=== PATIENT | female | born 1950 | race Caucasian/White ===

== ENCOUNTER 2018-10-30 06:41 | Inpatient (IN) | payer MEDICARE ==
[2018-10-29 09:42] VITALS: BMI 37.5
[2018-10-30 07:45] LABS: #Eosinphils 0.1 thou/uL (0.0-0.7); #Lymphocytes 3.1 thou/uL (1.20-3.40); #Monocytes 0.5 thou/uL (0.11-0.59); #Neutrophils 3.1 thou/uL (1.40-6.50); %Basophils 0.6 % (0.0-1.0); %Lymphocytes 44.9 % (21.0-51.0); %Monocytes 7.6 % (0.0-10.0); %Neutrophils 45.9 % (42.0-75.0); Hemoglobin 11.7 g/dL (12.0-16.0); Mean Corpuscular HGB CONC 33.2 g/dL (32.0-36.0); Mean Corpuscular Hemoglobin 29.8 pg (27.0-31.0); Mean Corpuscular Volume 89.6 fL (78.0-98.0); Mean Platelet Volume 7.1 fL (7.4-10.4); Platelet Count 237 thou/uL (130-400); RBC Distribution Width 12.8 % (11.5-14.5); Red Blood Cell (RBC) Count 3.92 mill/uL (4.20-5.40); White Blood Cell (WBC) Count 6.8 thou/uL (4.8-10.8)
[2018-10-30 08:04] LABS: Anion Gap 12 mmol/L (10-20); BUN (Urea Nitrogen) 16 mg/dL (9.8-20.1); Calc. Creatinine Clearance 96 mL/min (70-130); Calcium 9.3 mg/dL (7.8-10.44); Carbon Dioxide 30 mmol/L (23-31); Chloride 100 mmol/L (98-107); Estimated GFR-MDRD 65; Glucose 106 mg/dL (80-115); Potassium 4.2 mmol/L (3.5-5.1); Sodium 138 mmol/L (136-145)
[2018-10-30] MEDS ORDERED: Sodium Chloride 0.9% 10 ML ONE (09:23)
[2018-10-30] MEDS ORDERED: Fentanyl 100 MCG/2 ML VIAL ONE ×3 (09:35→11:52)
[2018-10-30] MEDS ORDERED: Glycopyrrolate 0.2 MG/ML 5 ML SYRINGE ONE (10:12)
[2018-10-30] MEDS ORDERED: Ketorolac Tromethamine 30 MG/ML VIAL ONE (10:12)
[2018-10-30] MEDS ORDERED: Rocuronium Bromide 10 MG/ML (10ML VIAL) ONE (10:12)
[2018-10-30] MEDS ORDERED: Dexamethasone 20 MG/5 ML VIAL ONE (10:12)
[2018-10-30] MEDS ORDERED: Lidocaine 1% PF 5 ML VIAL ONE (10:12)
[2018-10-30] MEDS ORDERED: PROPOFOL 200 MG/20 ML VIAL ONE (10:12)
[2018-10-30] MEDS ORDERED: Ondansetron PF 4 MG/2 ML Vial ONE (10:12)
[2018-10-30] MEDS ORDERED: Meperidine HCl/PF 25 MG/ML VIAL SLOW IVP PRN (11:39)
[2018-10-30] MEDS ORDERED: Promethazine HCl 25 MG/ML VIAL IM/IV PRN (11:39)
[2018-10-30] MEDS ORDERED: Ketorolac Tromethamine 30 MG/ML VIAL IVP PRN (11:39)
[2018-10-30] MEDS ORDERED: Ondansetron HCl/PF 4 MG/2 ML Vial IVP PRN (11:39)
[2018-10-30] MEDS ORDERED: Non-Formulary Medication 1 EACH PO PRN (11:39)
[2018-10-30] MEDS ORDERED: Morphine 4 MG/ML VIAL SLOW IVP PRN ×2 (11:39→12:14)
[2018-10-30] MEDS ORDERED: HYDROmorphone 2 MG/ML VIAL ONE (12:13)
[2018-10-30] MEDS ORDERED: HYDROcodone/Acetaminophen 10/325 mg Tablet PO PRN (12:14)
[2018-10-30] MEDS ORDERED: Promethazine 25 MG TAB PO PRN (12:14)
[2018-10-30] MEDS ORDERED: tiZANidine HCl 4 MG TAB PO PRN (12:14)
[2018-10-30] MEDS ORDERED: Bisacodyl 10 MG SUPP PR PRN (12:14)
[2018-10-30] MEDS ORDERED: Milk Of Magnesia 30 ML UDCUP PO PRN (12:14)
[2018-10-30] MEDS ORDERED: diphenhydrAMINE 50 MG/ML VIAL IVP PRN (12:14)
[2018-10-30] MEDS ORDERED: diphenhydrAMINE 25 MG CAP PO PRN (12:14)
[2018-10-30] MEDS ORDERED: traMADol HCl 50 MG TAB PO PRN ×2 (12:14)
[2018-10-30] MEDS ORDERED: Mag-Al 1200 mg/1200 mg/30 ML UDCUP PO PRN (12:14)
[2018-10-30] MEDS ORDERED: Promethazine HCl 25 MG/ML VIAL IM PRN (12:14)
[2018-10-30] MEDS ORDERED: Promethazine HCl 12.5 MG SUPP PR PRN (12:14)
[2018-10-30] MEDS ORDERED: Ondansetron PF 4 MG/2 ML Vial IM PRN (12:14)
[2018-10-30] MEDS ORDERED: Morphine 2 MG/ML SYRINGE SLOW IVP PRN (12:15)
--- NOTE | 2018-10-30 12:37 | OP ---
DATE OF PROCEDURE: 10/30/2018 MODEL BUILDER: Nesha Parkinson PA-C PROCEDURES PERFORMED: L4-L5 laminectomy, posterolateral arthrodesis, pedicle screw instrumentation, demineralized bone matrix, local morselized autograft, L4-L5 pedicle screw instrumentation. DESCRIPTION OF PROCEDURE: The patient was brought to the operating room and intubated. She was rolled in a prone position on gel-filled chest rolls. An incision was made exposing L4 and L5 and the level was confirmed by x-ray. We performed moderate bilateral medial facetectomies for the purpose of decompressions and then we placed pedicle screws at L4 and L5 bilaterally using lateral fluoroscopic guidance and the position was confirmed with AP and lateral x-ray. A bhargav was secured between the screws, connected by nuts, which were final tightened. The wound was then extensively irrigated and maximum hemostasis was secured. A combination of demineralized bone matrix and local morselized autograft was laid over the lamina and posterolateral surfaces for the purpose of arthrodesis. Vancomycin powder was applied and the wound was then closed in anatomic layers. Job ID: [id number]
[2018-10-30] MEDS ORDERED: Promethazine HCl 25 MG/ML VIAL ONE (12:40)
[2018-10-30] MEDS: Sodium Chloride 0.9% 1,000 ML IV SCH (13:47)
[2018-10-30] MEDS ORDERED: ALPRAZolam 0.5 MG TAB PO PRN (14:45)
[2018-10-30] MEDS ORDERED: Eucerin (Mineral Oil/Petrolatum,White) 30 gm Jar TOP PRN (15:14)
[2018-10-30] MEDS ORDERED: Diabetic Tussin 200 MG/10 ML UDCUP PO PRN (15:14)
[2018-10-30] MEDS ORDERED: Loperamide HCl 2 MG CAP PO PRN (15:14)
[2018-10-30] MEDS ORDERED: Zolpidem Tartrate 5 MG TAB PO PRN (15:14)
[2018-10-30] MEDS ORDERED: Cepastat Lozenges 1 LOZ PO PRN (15:14)
[2018-10-30] MEDS ORDERED: hydrALAZINE 20 MG/ML VIAL SLOW IVP PRN (15:14)
[2018-10-30] MEDS ORDERED: Artificial Tears 18 DROP/0.9 ML EA EYE PRN (15:14)
[2018-10-30] MEDS ORDERED: Senokot S 8.6-50 MG TAB PO PRN (15:14)
--- NOTE | 2018-10-30 15:14 | PDOC.PN ---
- Subjective Encounter Start Date: 10/30/18 Encounter Start Time: 15:13 -: old records requested/rev Patient seen and examined. No new complaints. No overnight events consulted for medical management - Objective MAR Reviewed: Yes Vital Signs & Weight: Vital Signs (12 hours) Temp Pulse Resp BP Pulse Ox 10/30/18 13:40 97.6 F 90 16 131/81 93 L Weight Weight 220 lb Result Diagrams: 10/30/18 07:37 10/30/18 07:37 Phys Exam - Physical Examination Constitutional: NAD HEENT: PERRLA, moist MMs, sclera anicteric Neck: no JVD, supple Respiratory: no wheezing, no rales, no rhonchi Cardiovascular: RRR, no significant murmur, no rub Gastrointestinal: soft, non-tender, no distention, positive bowel sounds Musculoskeletal: no edema, pulses present Neurological: non-focal, normal sensation, moves all 4 limbs Lymphatic: no nodes Psychiatric: normal affect, A&O x 3 Skin: no rash, normal turgor Dx/Plan (1) S/P lumbar laminectomy Code(s): Z98.890 - OTHER SPECIFIED POSTPROCEDURAL STATES Status: Acute (2) Anemia, normocytic normochromic Code(s): D64.9 - ANEMIA, UNSPECIFIED Status: Chronic (3) Anxiety and depression Code(s): F41.9 - ANXIETY DISORDER, UNSPECIFIED; F32.9 - MAJOR DEPRESSIVE DISORDER, SINGLE EPISODE, UNSPECIFIED Status: Chronic (4) Chronic low back pain Code(s): M54.5 - LOW BACK PAIN; G89.29 - OTHER CHRONIC PAIN Status: Chronic (5) Dyslipidemia Code(s): E78.5 - HYPERLIPIDEMIA, UNSPECIFIED Status: Chronic (6) GERD (gastroesophageal reflux disease) Code(s): K21.9 - GASTRO-ESOPHAGEAL REFLUX DISEASE WITHOUT ESOPHAGITIS Status: Chronic (7) Hypertension Code(s): I10 - ESSENTIAL (PRIMARY) HYPERTENSION Status: Chronic (8) Obesity (BMI 30-39.9) Code(s): E66.9 - OBESITY, UNSPECIFIED Status: Chronic - Plan cont current plan of care, PT/OT * home medication reconciled * medication reviewed as below * symptomatic treatment * pain controlled * code status full code * medically stable. Review of Systems - Review of Systems ENT: negative: Ear Pain, Ear Discharge, Nose Pain, Nose Discharge, Nose Congestion, Mouth Pain, Mouth Swelling, Throat Pain, Throat Swelling, Other Respiratory: negative: Cough, Dry, Shortness of Breath, Hemoptysis, SOB with Excertion, Pleuritic Pain, Sputum, Wheezing Cardiovascular: negative: chest pain, palpitations, orthopnea, paroxysmal nocturnal dyspnea, edema, light headedness, other Gastrointestinal: negative: Nausea, Vomiting, Abdominal Pain, Diarrhea, Constipation, Melena, Hematochezia, Other Genitourinary: negative: Dysuria, Frequency, Incontinence, Hematuria, Retention , Other Musculoskeletal: negative: Neck Pain, Shoulder Pain, Arm Pain, Back Pain, Hand Pain, Leg Pain, Foot Pain, Other Skin: negative: Rash, Lesions, [place], Bruising, Other - Medications/Allergies Allergies/Adverse Reactions: Allergies Allergy/AdvReac Type Severity Reaction Status Date / Time No Known Allergies Allergy Verified 10/29/18 09:42 Medications: Current Medications Hydrocodone Bitart/Acetaminophen ([place] 10/325) 1 tab PO Q4H PRN PRN Reason: PAIN (1-3) Hydrocodone Bitart/Acetaminophen ([place] 10/325) 2 tab PO Q4H PRN PRN Reason: PAIN (4-6) Al Hydroxide/Mg Hydroxide (Maalox) 30 ml PO Q4H PRN PRN Reason: Heartburn or Indigestion Alprazolam (Xanax) 0.5 mg PO DAILYPRN PRN PRN Reason: Anxiety Atorvastatin Calcium (Lipitor) 20 mg PO HS MAHESH Bisacodyl (Dulcolax) 10 mg LA Q12H PRN PRN Reason: Constipation Cyclobenzaprine HCl (Flexeril) 10 mg PO HS MAHESH Diphenhydramine HCl (Benadryl) 25 mg PO Q6H PRN PRN Reason: Itching Diphenhydramine HCl (Benadryl) 25 mg IVP Q6H PRN PRN Reason: Itching Estradiol (Estrace) 1 mg PO DAILY [facility] Fentanyl (Pacu-Sublimaze) 50 mcg SLOW IVP Q10MIN PRN PRN Reason: Moderate to Severe Pain/PACU Stop: 10/30/18 23:30 Gabapentin (Neurontin) 600 mg PO BID MAHESH Hydrochlorothiazide (Hydrochlorothiazide) 25 mg PO DAILY [facility] Sodium Chloride (Normal Saline 0.9%) 1,000 mls @ 75 mls/hr IV .[id number] [facility] Last Admin: 10/30/18 13:47 Dose: 1,000 mls Cefazolin Sodium/Dextrose 2 gm (/ Device) 50 mls @ 100 mls/hr IVPB Q8H [facility] Stop: 10/31/18 00:29 Irbesartan (Avapro) 150 mg PO DAILY [facility] Ketorolac Tromethamine (Pacu-Toradol) 15 mg IVP ONE PRN PRN Reason: Pain if not already given/OR Stop: 10/30/18 23:30 Loratadine (Claritin) 10 mg PO DAILY [facility] Magnesium Hydroxide (Milk Of Magnesium) 30 ml PO Q12H PRN PRN Reason: Constipation Meloxicam (Mobic) 15 mg PO DAILY [facility] Meperidine HCl (Demerol) 12.5 mg SLOW IVP ONE PRN PRN Reason: SHIVERING IN PACU Stop: 10/30/18 23:30 Metoprolol Tartrate (Lopressor) 50 mg PO BID [facility] Morphine Sulfate (Morphine) 4 mg SLOW IVP ONE PRN PRN Reason: Moderate to Severe Pain (6-10) Stop: 10/30/18 23:30 Morphine Sulfate (Morphine) 2 mg SLOW IVP Q1H PRN PRN Reason: MODERATE BREAKTHROUGH PAIN Morphine Sulfate (Morphine) 4 mg SLOW IVP Q1H PRN PRN Reason: SEVERE BREAKTHROUGH PAIN Non-Formulary Medication () 0 each PO PRN PRN PRN Reason: FOR RR<12 OR O2 SAT<92%ON RA Stop: 10/30/18 23:30 Ondansetron HCl (Pacu-Zofran) 4 mg IVP ONE PRN PRN Reason: Nausea/Vomiting in PACU Stop: 10/30/18 23:30 Ondansetron HCl (Zofran) 4 mg IM Q24H PRN PRN Reason: Nausea/Vomiting Pantoprazole Sodium (Protonix) 40 mg PO DAILY [facility] Integra Plus 0 each PO DAILY [facility] Methylcellulose [ Fiber Laxative 500 Mg] 0 each PO HS [facility] Polyethylene Glycol (Miralax) 17 gm PO HS [facility] Potassium Chloride (Klor-Con 10) 10 meq PO DAILY [facility] Promethazine HCl (Pacu-Phenergan) 6.25 mg IM/IV ONE PRN PRN Reason: Nausea in PACU Stop: 10/30/18 23:30 Promethazine HCl (Phenergan) 12.5 mg IM Q4H PRN PRN Reason: Nausea/Vomiting Promethazine HCl (Phenergan) 12.5 mg PO Q4H PRN PRN Reason: Nausea/Vomiting Promethazine HCl (Phenergan Suppository) 12.5 mg LA Q4H PRN PRN Reason: Nausea/Vomiting Sodium Chloride (Flush - Normal Saline) 10 ml IVF Q12HR MAHESH Sodium Chloride (Flush - Normal Saline) 10 ml IVF PRN PRN PRN Reason: Saline Flush Tizanidine HCl (Zanaflex) 4 mg PO Q6H PRN PRN Reason: MUSCLE SPASM Tramadol HCl (Ultram) 50 mg PO Q6H PRN PRN Reason: PAIN (1-3) Tramadol HCl (Ultram) 100 mg PO Q6H PRN PRN Reason: PAIN (4-6)
[2018-10-30] MEDS: CEFAZOLIN 2 GM in Premix Bag 1 BAG IVPB SCH ×2 (16:45→23:14)
[2018-10-30] MEDS: HYDROcodone/Acetaminophen 10/325 mg Tablet PO PRN ×2 (16:47→21:29)
[2018-10-30] MEDS ORDERED: Cyclobenzaprine 10 MG TAB PO SCH (21:00)
[2018-10-30] MEDS ORDERED: Atorvastatin Calcium 20 MG TAB PO SCH (21:00)
[2018-10-30] MEDS ORDERED: Polyethylene Glycol 3350 17 GM Packet PO SCH (21:00)
[2018-10-30] MEDS ORDERED: Citrucel 500 MG TAB PO SCH (21:00)
[2018-10-30] MEDS: Gabapentin 300 MG CAP PO SCH (21:29)
[2018-10-30] MEDS: Metoprolol Tartrate 50 MG TAB PO SCH (21:29)
[2018-10-31] MEDS: Sodium Chloride 0.9% 1,000 ML IV SCH ×2 (00:35→14:54)
--- NOTE | 2018-10-31 08:56 | PRG ---
DATE OF SERVICE: 10/31/2018 SUBJECTIVE: The patient is a 68-year-old female, status post L4-L5 decompression and fusion. Following the surgery, she was transitioned to the Med/Surg floor, where her pain has been well-controlled with p.o. medications, she has been tolerating a regular diet, and she has been voiding appropriately. The patient reports she does feel weak when she attempts to stand up and walk. She is able to get up to the bedside commode, but she has not done much walking other than that. She has also had some small amount of incisional drainage, which required dressing changes overnight. The patient is awake, alert, comfortable. Her dressing was recently changed and no active drainage is appreciated. There is a small amount of bloody drainage on the pad. She has free active range of all extremities and good motor strength in the bed. PLAN: We will plan to get the patient a rolling walker and continue to mobilize with the assistance of Physical Therapy. The patient would like to go home today; however, considering her lack of mobilization at this point, we will reassess later this afternoon after physical therapy and if she gets a walker. I will call to check on the patient later today and then further formulate a plan. Job ID: [id number]
[2018-10-31] MEDS ORDERED: Loratadine 10 MG TAB PO SCH (09:00)
[2018-10-31] MEDS ORDERED: Potassium Chloride 10 MEQ TAB PO SCH (09:00)
[2018-10-31] MEDS ORDERED: INTEGRA PLUS PO SCH (09:00)
[2018-10-31] MEDS ORDERED: Estradiol 1 MG TAB PO SCH (09:00)
[2018-10-31] MEDS ORDERED: Hydrochlorothiazide 25 MG TAB PO SCH (09:00)
[2018-10-31] MEDS ORDERED: Meloxicam 15 MG TAB PO SCH (09:00)
[2018-10-31] MEDS: Metoprolol Tartrate 50 MG TAB PO SCH (09:22)
[2018-10-31] MEDS: Gabapentin 300 MG CAP PO SCH (09:22)
[2018-10-31] MEDS: Cephalexin 250 MG CAP PO SCH ×2 (09:22→15:08)
[2018-10-31] MEDS: HYDROcodone/Acetaminophen 10/325 mg Tablet PO PRN ×2 (09:23→16:37)
--- NOTE | 2018-10-31 10:21 | PDOC.PN ---
- Subjective Encounter Start Date: 10/31/18 Encounter Start Time: 08:00 Patient seen and examined. No new complaints. No overnight events - Objective Resuscitation Status - Order Detail: 10/30/18 15:15 Resuscitation Status Routine Resuscitation Status: FULL: Full Resuscitation MAR Reviewed: Yes Vital Signs & Weight: Vital Signs (12 hours) Temp Pulse Resp BP Pulse Ox 10/31/18 09:00 97.9 F 84 20 121/63 100 10/31/18 08:45 97.9 F 84 20 121/63 100 10/31/18 04:09 98.0 F 81 20 95/61 93 L 10/31/18 00:17 97.9 F 108 H 20 136/78 95 Weight Weight 220 lb I&O: 10/30/18 10/31/18 11/01/18 06:59 06:59 06:59 Intake Total 1150 Balance 1150 Result Diagrams: 10/30/18 07:37 10/30/18 07:37 Phys Exam - Physical Examination Constitutional: NAD HEENT: PERRLA, moist MMs, sclera anicteric Neck: no JVD, supple Respiratory: no wheezing, no rales, no rhonchi Cardiovascular: RRR, no significant murmur, no rub Gastrointestinal: soft, non-tender, no distention, positive bowel sounds Musculoskeletal: no edema, pulses present Neurological: non-focal, normal sensation, moves all 4 limbs Lymphatic: no nodes Psychiatric: normal affect, A&O x 3 Skin: no rash, normal turgor Dx/Plan (1) S/P lumbar laminectomy Code(s): Z98.890 - OTHER SPECIFIED POSTPROCEDURAL STATES Status: Acute (2) Anemia, normocytic normochromic Code(s): D64.9 - ANEMIA, UNSPECIFIED Status: Chronic (3) Anxiety and depression Code(s): F41.9 - ANXIETY DISORDER, UNSPECIFIED; F32.9 - MAJOR DEPRESSIVE DISORDER, SINGLE EPISODE, UNSPECIFIED Status: Chronic (4) Chronic low back pain Code(s): M54.5 - LOW BACK PAIN; G89.29 - OTHER CHRONIC PAIN Status: Chronic (5) Dyslipidemia Code(s): E78.5 - HYPERLIPIDEMIA, UNSPECIFIED Status: Chronic (6) GERD (gastroesophageal reflux disease) Code(s): K21.9 - GASTRO-ESOPHAGEAL REFLUX DISEASE WITHOUT ESOPHAGITIS Status: Chronic (7) Hypertension Code(s): I10 - ESSENTIAL (PRIMARY) HYPERTENSION Status: Chronic (8) Obesity (BMI 30-39.9) Code(s): E66.9 - OBESITY, UNSPECIFIED Status: Chronic - Plan cont current plan of care, 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 Review of Systems - Review of Systems ENT: negative: Ear Pain, Ear Discharge, Nose Pain, Nose Discharge, Nose Congestion, Mouth Pain, Mouth Swelling, Throat Pain, Throat Swelling, Other Respiratory: negative: Cough, Dry, Shortness of Breath, Hemoptysis, SOB with Excertion, Pleuritic Pain, Sputum, Wheezing Cardiovascular: negative: chest pain, palpitations, orthopnea, paroxysmal nocturnal dyspnea, edema, light headedness, other Gastrointestinal: negative: Nausea, Vomiting, Abdominal Pain, Diarrhea, Constipation, Melena, Hematochezia, Other Genitourinary: negative: Dysuria, Frequency, Incontinence, Hematuria, Retention , Other Musculoskeletal: negative: Neck Pain, Shoulder Pain, Arm Pain, Back Pain, Hand Pain, Leg Pain, Foot Pain, Other - Medications/Allergies Allergies/Adverse Reactions: Allergies Allergy/AdvReac Type Severity Reaction Status Date / Time No Known Allergies Allergy Verified 10/29/18 09:42 Medications: Current Medications Hydrocodone Bitart/Acetaminophen ([place] 10/325) 1 tab PO Q4H PRN PRN Reason: PAIN (1-3) Hydrocodone Bitart/Acetaminophen ([place] 10/325) 2 tab PO Q4H PRN PRN Reason: PAIN (4-6) Last Admin: 10/31/18 09:23 Dose: 2 tab Al Hydroxide/Mg Hydroxide (Maalox) 30 ml PO Q4H PRN PRN Reason: Heartburn or Indigestion Alprazolam (Xanax) 0.5 mg PO DAILYPRN PRN PRN Reason: Anxiety Last Admin: 10/30/18 23:13 Dose: 0.5 mg Artificial Tears (Tears Naturale) 2 drop EA EYE PRN PRN PRN Reason: Dry Eyes Atorvastatin Calcium (Lipitor) 20 mg PO HS MAHESH Last Admin: 10/30/18 21:29 Dose: 20 mg Bisacodyl (Dulcolax) 10 mg ND Q12H PRN PRN Reason: Constipation Cephalexin (Keflex) 500 mg PO QID [facility] Last Admin: 10/31/18 09:22 Dose: 500 mg Cyclobenzaprine HCl (Flexeril) 10 mg PO HS [facility] Last Admin: 10/30/18 21:29 Dose: 10 mg Diphenhydramine HCl (Benadryl) 25 mg PO Q6H PRN PRN Reason: Itching Diphenhydramine HCl (Benadryl) 25 mg IVP Q6H PRN PRN Reason: Itching Estradiol (Estrace) 1 mg PO DAILY [facility] Last Admin: 10/31/18 09:22 Dose: 1 mg Gabapentin (Neurontin) 600 mg PO BID [facility] Last Admin: 10/31/18 09:22 Dose: 600 mg Guaifenesin (Robitussin Sf) 200 mg PO Q4H PRN PRN Reason: Cough Hydralazine HCl (Apresoline) 10 mg SLOW IVP Q4H PRN PRN Reason: SBP > 180 and HR < 70 Hydrochlorothiazide (Hydrochlorothiazide) 25 mg PO DAILY [facility] Last Admin: 10/31/18 09:21 Dose: 25 mg Sodium Chloride (Normal Saline 0.9%) 1,000 mls @ 75 mls/hr IV .[id number] [facility] Last Admin: 10/31/18 00:35 Dose: Not Given Irbesartan (Avapro) 150 mg PO DAILY [facility] Last Admin: 10/31/18 09:24 Dose: 150 mg Loperamide HCl (Imodium) 2 mg PO PRN PRN PRN Reason: Diarrhea/Loose Stools Loratadine (Claritin) 10 mg PO DAILY [facility] Last Admin: 10/31/18 09:22 Dose: 10 mg Magnesium Hydroxide (Milk Of Magnesium) 30 ml PO Q12H PRN PRN Reason: Constipation Meloxicam (Mobic) 15 mg PO DAILY [facility] Last Admin: 10/31/18 09:21 Dose: 15 mg Methylcellulose (Citrucel) 500 mg PO HS [facility] Last Admin: 10/30/18 21:29 Dose: Not Given Metoprolol Tartrate (Lopressor) 50 mg PO BID [facility] Last Admin: 10/31/18 09:22 Dose: 50 mg Mineral Oil/White Petrolatum (Eucerin Cream) 0 gm TOP BIDPRN PRN PRN Reason: Dry Skin Morphine Sulfate (Morphine) 2 mg SLOW IVP Q1H PRN PRN Reason: MODERATE BREAKTHROUGH PAIN Morphine Sulfate (Morphine) 4 mg SLOW IVP Q1H PRN PRN Reason: SEVERE BREAKTHROUGH PAIN Ondansetron HCl (Zofran) 4 mg IM Q24H PRN PRN Reason: Nausea/Vomiting Pantoprazole Sodium (Protonix) 40 mg PO DAILY [facility] Last Admin: 10/31/18 09:22 Dose: 40 mg Integra Plus 0 each PO DAILY [facility] Polyethylene Glycol (Miralax) 17 gm PO HS [facility] Last Admin: 10/30/18 21:29 Dose: Not Given Potassium Chloride (Klor-Con 10) 10 meq PO DAILY [facility] Last Admin: 10/31/18 09:22 Dose: 10 meq Promethazine HCl (Phenergan) 12.5 mg IM Q4H PRN PRN Reason: Nausea/Vomiting Promethazine HCl (Phenergan) 12.5 mg PO Q4H PRN PRN Reason: Nausea/Vomiting Promethazine HCl (Phenergan Suppository) 12.5 mg ND Q4H PRN PRN Reason: Nausea/Vomiting Senna/Docusate Sodium (Senokot S) 2 tab PO BID PRN PRN Reason: Constipation Sodium Chloride (Flush - Normal Saline) 10 ml IVF Q12HR [facility] Last Admin: 10/31/18 09:29 Dose: 10 ml Sodium Chloride (Flush - Normal Saline) 10 ml IVF PRN PRN PRN Reason: Saline Flush Throat Lozenges (Cepastat Lozenges) 1 irvin PO Q2H PRN PRN Reason: Sore Throat Tizanidine HCl (Zanaflex) 4 mg PO Q6H PRN PRN Reason: MUSCLE SPASM Last Admin: 10/30/18 23:13 Dose: 4 mg Tramadol HCl (Ultram) 50 mg PO Q6H PRN PRN Reason: PAIN (1-3) Tramadol HCl (Ultram) 100 mg PO Q6H PRN PRN Reason: PAIN (4-6) Zolpidem Tartrate (Ambien) 5 mg PO HSPRN PRN PRN Reason: Insomnia
[2018-10-31 15:42] VITALS: BP 114/66; TEMP 97.7
--- NOTE | 2018-11-01 10:37 | DIS ---
DATE OF ADMISSION: 10/30/2018 DATE OF DISCHARGE: 10/31/2018 PRIMARY CARE PHYSICIAN: [facility] Call Admission. DISCHARGE DISPOSITION: Rehab. PRIMARY DISCHARGE DIAGNOSIS: Status post lumbar laminectomy. SECONDARY DISCHARGE DIAGNOSES: 1. Anemia, normocytic normochromic. 2. Anxiety and depression. 3. Chronic low back pain. 4. Hypertension. 5. Gastroesophageal reflux disease. 6. Dyslipidemia. 7. Obesity. PRIMARY PROCEDURE/OPERATION: Lumbar laminectomy. RADIOLOGICAL INVESTIGATION: None. SIGNIFICANT LABORATORY DATA: Hemoglobin 11.7. Creatinine 0.87. DISCHARGE MEDICATIONS: 1. Xanax 0.5 mg p.o. daily. 2. Lipitor 20 mg p.o. at bedtime. 3. Cetirizine 10 mg daily. 4. Flexeril 10 mg at bedtime. 5. Estradiol 1 mg daily. 6. Gabapentin 600 mg b.i.d. 7. Hydrochlorothiazide 25 mg p.o. daily. 8. [place] 1 tablet b.i.d. p.r.n. 9. Avapro 150 mg p.o. daily. 10. Multivitamin 1 tablet p.o. daily. 11. Mobic 15 mg p.o. daily. 12. Laxative 500 mg p.o. at bedtime. 13. Lopressor 50 mg b.i.d. 14. Omeprazole 20 mg daily. 15. MiraLAX 17 g p.o. at bedtime. 16. Potassium chloride 10 mEq p.o. daily. CONTRAINDICATION: None. CODE STATUS: Full code. INPATIENT VARNISH BLENDER: Dr. Noguera was primary. Sound Team was consulted for medical comanagement. TEST RESULTS PENDING ON DISCHARGE: None. ALLERGIES: NO KNOWN DRUG ALLERGIES. DISCHARGE PLAN: Posthospital, the patient will follow up with primary care physician and Dr. Noguera as instructed. HOSPITAL COURSE: A 68-year-old female with above-mentioned medical problem, who was admitted by Dr. Noguera for lumbar laminectomy, which was done on October 30, 2018 without any complication. Postoperatively, Sound Team was consulted for medical comanagement. The patient's medical problems remained stable. The patient was doing very well after surgery. Her pain was controlled. We resumed home medication while in hospital as well as on discharge. The patient was planned for discharge by primary team. The patient is seen and examined at bedside. Please see my progress note from today for further detail. Job ID: [id number]
--- NOTE | 2018-11-02 17:50 | EKG ---
Test Reason : PREOP Blood Pressure : / mmHG Vent. Rate : 071 BPM Atrial Rate : 071 BPM P-R Int : 156 ms QRS Dur : 078 ms QT Int : 382 ms P-R-T Axes : 048 -05 024 degrees QTc Int : 415 ms Normal sinus rhythm Low voltage QRS Borderline ECG No previous ECGs available Confirmed by VILMA MUKHERJEE (2) on 11/02/2018 5:49:57 PM Referred By: MARIIA Confirmed By:VILMA MUKHERJEE
== END 2018-10-31 17:10 | disposition home or self-care (01) | DRG 460 ==
LOC: SURG A 06:41 → EDSTATUS 08:55 → SURG A 12:46
PROVIDERS: ADMIT Neurological Surgery; ATTEND Neurological Surgery
PROC: 01NB0ZZ Release Lumbar Nerve, Open Approach (ICD-10-PCS; principal; 2018-10-30)
PROC: 0SG00J1 Fusion of Lumbar Vertebral Joint with Synthetic Substitute, Posterior Approach, Posterior Column, Open Approach (ICD-10-PCS; 2018-10-30)
DX: M43.16 Spondylolisthesis, lumbar region (principal); D64.9 Anemia, unspecified; F41.9 Anxiety disorder, unspecified; F32.9 Major depressive disorder, single episode, unspecified; E78.5 Hyperlipidemia, unspecified; K21.9 Gastro-esophageal reflux disease without esophagitis; I10 Essential (primary) hypertension; E66.9 Obesity, unspecified; Z68.37 Body mass index [BMI] 37.0-37.9, adult
CPT/HCPCS: 36415; 76000; 80048; 85025; 93005; 93010; C1713; C1768; J0131; J1170; J2550; J3010; J3370; J3490